=== PATIENT | female | born 1965 ===

== ENCOUNTER → 2021-10-26 | Outpatient (CLI) | payer BC | END | disposition home or self-care (01) | LOC: PLD 12:23 → LAB SHORT 12:23 | DX: C44.529 Squamous cell carcinoma of skin of other part of trunk (principal); L82.1 Other seborrheic keratosis | CPT/HCPCS: 88305 ==

== ENCOUNTER → 2021-12-12 | Outpatient (CLI) | payer BC | END | disposition home or self-care (01) | LOC: LAB SHORT 08:03 → PLD 08:03 | DX: C44.519 Basal cell carcinoma of skin of other part of trunk (principal) | CPT/HCPCS: 88305 ==